=== PATIENT | male | born 1960 | race Caucasian/White ===

== ENCOUNTER 2023-09-08 10:39 | Emergency (ER) | payer OTHER, SELFPAY ==
[2023-09-08] VITALS (7 sets, daily range): BP systolic 156–178; BP diastolic 85–98; PULSE 75–91; RESP 16–20; TEMP 36.7–37.7; O2SAT 94–98
--- NOTE | ~2023-09-08 | XR_ITS ---
EXAMINATION: XR chest 2V DATE: 09/08/2023 12:24 INDICATION: Cough TECHNIQUE: PA and lateral views of the chest were obtained. COMPARISON: Chest radiograph dated 09/25/2012 FINDINGS: Calcified nodule in the left upper lung zone and calcified mediastinal lymph nodes consistent with ol d granulomatous disease. No other airspace opacities, pulmonary edema, pleural effusion or pneumothor ax. Heart size is normal. Thoracic spondylosis. Suture anchors likely from rotator cuff repair at the right acromioclavicular joint. Bilateral distal clavicle resections. IMPRESSION: 1. No acute cardiopulmonary disease. Reviewed, dictated and finalized at location A. [facility]
--- NOTE | 2023-09-08 11:29 | ECG_ITS ---
Measurements Intervals [place] Rate: 76 P: 37 CT: 150 QRS: -3 QRSD: 84 T: 51 QT: 350 QTc: 396 Interpretive Statements SINUS RHYTHM NONSPECIFIC T-WAVE ABNORMALITY NO PREVIOUS ECG AVAILABLE FOR COMPARISON Electronically Signed On 09-08-2023 13:30:26 HAT FORMER by Cecil Johnson M.D.
[2023-09-08] MEDS: IPRATROPIUM 0.5 MG/ALBUTEROL SULFATE 2.5 MG AMPUL.NEB 3 ML INHALATION (12:11)
[2023-09-08 12:14] LABS: Basophils Percent Auto 0.7 % (0.2-1.2); Eosinophils Absolute Auto 0.1 K/mm3 (0-0.3); Eosinophils Percent Auto 1.3 % (0-4.4); Hemoglobin 14.5 g/dL (14.0-18.0); Immature Granulocyte Absolute 0.02 K/mm3 (0.00-0.031); Immature Granulocyte Percent A 0.4 % (0-0.5); Immature Platelet Fraction Pct 9.8 % (0.9-11.2); Lymphocytes Absolute Auto 0.33 K/mm3 (0.9-3.2); Lymphocytes Percent Auto 5.9 % (18.3-44.2); Mean Corpuscular Hemoglobin 30.3 pg (26-34); Mean Corpuscular Volume 91.9 fl (80-100); Mean Platelet Volume 11.8 fl (7.4-10.4); Monocytes Absolute Auto 0.8 K/mm3 (0.1-0.6); Monocytes Percent Auto 14.8 % (2.6-8.5); Neutrophils Absolute Auto 4.3 K/mm3 (1.3-6.7); Neutrophils Percent Auto 76.9 % (45.5-73.1); Platelet Count Result 137 k/mm3 (150-375); Red Blood Count 4.79 M/mm3 (4.6-6.20); Red Cell Distribution Width 14.1 % (11.5-14.5); White Blood Count 5.6 K/mm3 (4.5-10.0)
[2023-09-08 12:23] LABS: Alanine Aminotransferase 38 U/L (6-50); Albumin Level 4.4 g/dL (3.5-5.1); Alkaline Phosphatase 79 U/L (38-126); Anion Gap 7 mmol/L (8-16); Aspartate Amino Transferase 40 U/L (17-59); Bilirubin,Total 0.5 mg/dL (0.2-1.3); Blood Urea Nitrogen 23 mg/dL (9-20); Calcium 9.6 mg/dL (8.4-10.2); Carbon Dioxide 27 mmol/L (22-30); Chloride 104 mmol/L (98-107); Estimated CRCL calculation 87 ml/min; Estimated Glomerular Filt Rate > 60; Glucose 97 mg/dL (65-110); Potassium 4.1 mmol/L (3.4-5.0); Sodium 138 mmol/L (137-145)
[2023-09-08 12:39] LABS: Influenza A QL RT-PCR Positive (Negative); Influenza B QL RT-PCR Negative (Negative); RSV RNA, RT-PCR Negative (Negative); SARS-CoV-2 RNA PCR Negative (Negative)
[2023-09-08] MEDS: SODIUM CHLORIDE 0.9% IV 1,000 ML 999 ML IV CONT (13:29)
[2023-09-08] MEDS: ACETAMINOPHEN 325 MG TABLET 650 MG PO (13:29)
--- NOTE | 2023-09-08 13:57 | ED.GENADULT ---
HPI - General Adult General Chief complaint: Upper Respiratory Infection Stated complaint: URI Time Seen by Provider: 09/08/23 11:50 History of Present Illness HPI narrative: Patient is a 62-year-old male who presents ER with multiple complaints. Today began having sinus congestion sore throat cough. He has diffuse body aches with chest tightness. He is having cramps in his legs. Reports cramps have been often especially after bike rides which she went on yesterday. He is on diuretic. No known sick contacts. No alleviating factors. Related Data Allergies Allergy/AdvReac Type Severity Reaction Status Date / Time naproxen Allergy Severe Hives / Verified 05/17/19 15:37 [place] Review of Systems Review of Systems: All systems reviewed & are unremarkable except as noted in HPI and below Constitutional: Constitutional: Reports chills, Reports fatigue and Reports fever(s) ENT: Reports nasal congestion and Reports sore throat Cardiovascular: Cardiovascular: Reports chest pain, Denies rapid heart rate and Denies radiating jaw, neck or arm pain Respiratory: Respiratory: Denies chest congestion, Reports cough, Reports dyspnea and Denies wheezing Gastrointestinal: Gastrointestinal: Reports no additional gastrointestinal complaints Musculoskeletal: Musculoskeletal: Reports myalgias, Denies arthralgias, Denies joint swelling and Reports muscle cramps PMFSH Past Medical History Medical History (Updated 09/08/23 @ 18:56 by Yonatan Espinoza MD) Hypertension Surgical History Surgical History (Updated 09/08/23 @ 18:56 by Yonatan Espinoza MD) No pertinent past surgical history Exam Narrative: GENERAL: Well-appearing, well-nourished, and in no acute distress. HEAD: Normocephalic, atraumatic. ENT: Mucous membranes moist. CHEST: Faint expiratory wheezing upper lobes bilaterally. No respiratory distress. occasional coughing HEART: Regular rate and rhythm. Normal peripheral pulses. ABDOMEN: Soft, nontender, nondistended. EXTREMITIES: Normal range of motion. No edema. SKIN: Warm, dry, no rash. NEURO: Alert and oriented x3. PSYCH: Normal mood and affect. Course Course Emergency Course: patient given IV fluid, Tylenol for fever, DuoNeb for faint wheezing in upper lobes. No pneumonia. Discharge home with Tamiflu. Vital Signs Vital signs: Vital Signs Temperature 99.9 F H 09/08/23 11:29 Pulse Rate 85 09/08/23 11:29 Respiratory Rate 20 09/08/23 11:29 Blood Pressure 169/94 H 09/08/23 11:29 Pulse Oximetry 97 09/08/23 11:29 Temperature 98.6 F 09/08/23 14:09 Pulse Rate 75 09/08/23 13:46 Respiratory Rate 19 09/08/23 13:46 Blood Pressure 178/85 H 09/08/23 13:46 Pulse Oximetry 94 09/08/23 13:46 Medical Decision Making Vital Signs Vital Signs: Vital Signs Temperature 99.9 F H 09/08/23 11:29 Pulse Rate 85 09/08/23 11:29 Respiratory Rate 20 09/08/23 11:29 Blood Pressure 169/94 H 09/08/23 11:29 Pulse Oximetry 97 09/08/23 11:29 Temperature 98.6 F 09/08/23 14:09 Pulse Rate 75 09/08/23 13:46 Respiratory Rate 09/08/23 13:46 Blood Pressure 178/85 H 09/08/23 13:46 Pulse Oximetry 94 09/08/23 13:46 Lab Data 09/08/23 12:08 09/08/23 12:08 Labs: Lab Results 09/08/23 09/08/23 09/08/23 Range/Units 11:56 12:07 12:08 WBC 5.6 (4.5-10.0) K/mm3 RBC 4.79 (4.6-6.20) M/mm3 Hgb 14.5 (14.0-18.0) g/dL Hct 44.0 (42.0-52.0) % MCV 91.9 (80-100) fl MCH 30.3 (26-34) pg MCHC 33.0 (32-36) g/dl RDW 14.1 (11.5-14.5) % Plt Count 137 L (150-375) k/mm3 MPV 11.8 H (7.4-10.4) fl Immature Gran % (Auto) 0.4 (0-0.5) % Neut % (Auto) 76.9 H (45.5-73.1) % Lymph % (Auto) 5.9 L (18.3-44.2) % [place] % (Auto) 14.8 H (2.6-8.5) % Eos % (Auto) 1.3 (0-4.4) % Baso % (Auto) 0.7 (0.2-1.2) % Lymph # (Auto) 0.33 L (0.9-3.2) K/mm3 [place] # (Auto)
== END 2023-09-08 14:10 | disposition home or self-care (01) ==
PROVIDERS: Physician Assistant; Emergency Provider Emergency Medicine
DX: J10.1 Influenza due to other identified influenza virus with other respiratory manifestations (principal); Z20.822 Contact with and (suspected) exposure to COVID-19; I10 Essential (primary) hypertension; R94.31 Abnormal electrocardiogram [ECG] [EKG]
CPT/HCPCS: 36415; 71046; 80053; 83735; 85025; 85055; 87637; 93005; 94640; 99283; A9270; J7030